=== PATIENT | female | born 1960 | race African-American/Black ===

== ENCOUNTER 2019-04-07 08:36 | Emergency (ER) | payer MEDICAID ==
[~2019-04-07] VITALS: Ht 162.6 cm; Wt 78.0 kg
[2019-04-07 08:56] VITALS: BP 118/75
--- NOTE | 2019-04-07 09:12 | Emergency Room Report ---
History of Present Illness General Chief Complaint: Eye Problems Present Illness HPI 58-year-old female complaining of frontal and superior headache which started 2 to 3 days ago. She reports also feeling bilateral eye pain and pressure. She denies any vision changes, eye discharge, eye redness, trauma, injuries, falls, syncope. She does note associated lightheaded dizziness and generalized body aches and chills. She has not gotten the influenza vaccination this year. She suffers from chronic migraines which she is taking medications on for over the years but has not taken anything for this episode. Allergies: Coded Allergies: No Known Allergies (Unverified , 04/07/19) Patient History Last Menstrual Period: 2012 Nursing Documentation-PMH Hx Neurological Problems: Yes - CHRONIC MIGRAINE Review of Systems Constitutional: Reports: chills, fever, weakness Respiratory: Denies: cough, shortness of breath Cardiovascular: Denies: chest pain, palpitations Gastrointestinal: Denies: diarrhea, vomiting Genitourinary: Denies: hematuria, pain Musculoskeletal: Denies: joint swelling Skin: Denies: rash, lesions Neurological: Reports: headache; Denies: dizziness Physical Exam Vital Signs Date Time Temp Pulse Resp B/P (MAP) Pulse Ox O2 Delivery O2 Flow Rate FiO2 04/07/19 08:39 101.1 100 19 127/75 (92) 97 Room Air Sp02 EP Interpretation: reviewed General Appearance: well appearing, no apparent distress, alert, non-toxic Head: normocephalic, atraumatic Eyes: bilateral eye normal inspection, bilateral eye PERRL, bilateral eye EOMI ENT: hearing grossly normal, EOM grossly intact, moist mucus membranes Neck: normal inspection, full range of motion, supple, thyroid normal, no meningismus, no bony tend, no carotid bruits Respiratory: lungs clear, normal breath sounds, no rhonchi, no respiratory distress, no retraction, no accessory muscle use, no wheezing, speaking full sentences Cardiovascular #1: regular rate, rhythm, normal capillary refill Cardiovascular #2: 2+ radial (R), 2+ radial (L) Gastrointestinal: soft, non-distended Rectal: deferred Musculoskeletal: moves extm spontaneously, no lower extremity edema Neurologic: alert, motor strength/tone normal, oracle database architect III-XII nml as tested, oriented, oriented x3, sensory intact, normal gait Psychiatric: mood/affect normal Skin: warm/dry, normal turgor Lymphatic: no adenopathy Medical Decision Making Diagnostic Impression: Primary Impression: Headache Additional Impression: Eye pain ER Course Differential includes Doubt meningitis as patient has full range of motion of neck and no pain. Doubt intracranial hemorrhage or mass given no neurological deficits. Likely migraine headache given history of similar. Will give medications and reevaluate Laboratory Tests Test 04/07/19 09:14 White Blood Count 10.4 K/UL (4.8-10.8) Red Blood Count 5.09 M/UL (4.20-5.40) Hemoglobin 13.5 G/DL (12.0-16.0) Hematocrit 41.7 % (37.0-47.0) Mean Corpuscular Volume 82 FL (80-99) Mean Corpuscular Hemoglobin 26.5 PG (27.0-31.0) L Mean Corpuscular Hemoglobin Concent 32.4 G/DL (32.0-36.0) Red Cell Distribution Width 13.1 % (11.6-14.8) Platelet Count 223 K/UL (150-450) Mean Platelet Volume 7.1 FL (6.5-10.1) Neutrophils (%) (Auto) 80.3 % (45.0-75.0) H Lymphocytes (%) (Auto) 8.1 % (20.0-45.0) L Monocytes (%) (Auto) 11.1 % (1.0-10.0) H Eosinophils (%) (Auto) 0.1 % (0.0-3.0) Basophils (%) (Auto) 0.5 % (0.0-2.0) Urine Color Pale yellow Urine Appearance Clear Urine pH 8 (4.5-8.0) Urine Specific [place] 1.015 (1.005-1.035) Urine Protein Negative (NEGATIVE) Urine Glucose (UA) Negative (NEGATIVE) Urine Ketones Negative (NEGATIVE) Urine Blood 2+ (NEGATIVE) H Urine Nitrite Negative (NEGATIVE) Urine Bilirubin Negative (NEGATIVE) Urine Urobilinogen Normal MG/DL (0.0-1.0) Urine Leukocyte Esterase 1+ (NEGATIVE) H Urine RBC 2-4 /HPF (0 - 2) H Urine WBC 2-4 /HPF (0 - 2) Urine Squamous Epithelial Cells Moderate /LPF (NONE/OCC) H Urine Bacteria Occasional /HPF (NONE) Sodium Level 135 MMOL/L (136-145) L Potassium Level 4.5 MMOL/L (3.5-5.1) Chloride Level 98 MMOL/L (98-107) Carbon Dioxide Level 31 MMOL/L (21-32) Anion Gap 6 mmol/L (5-15) Blood Urea Nitrogen 10 mg/dL (7-18) Creatinine 0.8 MG/DL (0.55-1.30) Estimate Glomerular Filtration Rate > 60 mL/min (>60) Glucose Level 122 MG/DL (74-106) H Calcium Level 9.1 MG/DL (8.5-10.1) Lab Results Impression Labs reviewed. Noted to have normal CBC, CMP, mild leukocyte esterase and blood in urine Reevaluation Time: 11:00 Last Vital Signs Date Time Temp Pulse Resp B/P (MAP) Pulse Ox O2 Delivery O2 Flow Rate FiO2 04/07/19 11:41 98.0 73 20 118/75 99 Room Air Reevaluation Impression Patient's testing reviewed noted to be within normal limits. Patient has no meningeal signs, no signs of sepsis or septic shock at this time. Patient symptoms likely secondary to migraine headache versus viral illness. Recommended taking her migraine medications. Given 3 days of her Zomig as she requested until she can follow-up with her primary care doctor. Recommended reevaluation in 2 to 3 days. Patient understands all instructions. Disposition: HOME, SELF-CARE Condition: Stable Scripts Zolmitriptan (Zomig) 5 Mg Tablet 5 MG ORAL PRN for 3 Days, #3 TAB Prov: David Campo M.D. 04/07/19 Referrals: NON PHYSICIAN (PCP) Patient Instructions: General Headache Without Cause Additional Instructions: Please follow-up with your primary care doctor in 2 to 3 days for reevaluation. Return to emergency room with any new or worsening symptoms. David Campo M.D. Apr 07, 2019 09:12
[2019-04-07] MEDS ORDERED: Ketorolac 30mg Inj IV ONE (09:15)
[2019-04-07] MEDS ORDERED: RESTORIL30 MG ORAL (09:49)
[2019-04-07] MEDS ORDERED: ZOMIG ZMT5 MG ORAL (09:50)
[2019-04-07 10:08] LABS: APPEARANCE,URINE CLEAR; BASOPHILS % (AUTO) 0.5 % (0.0-2.0); BILIRUBIN, URINE NEGATIVE (NEGATIVE); COLOR,URINE PALE YELLOW; EOSINOPHILS % (AUTO) 0.1 % (0.0-3.0); GLUCOSE, URINE (UA) NEGATIVE (NEGATIVE); HEMATOCRIT 41.7 % (37.0-47.0); HEMOGLOBIN 13.5 G/DL (12.0-16.0); KETONES,URINE NEGATIVE (NEGATIVE); LEUKOCYTE ESTERASE ,URINE 1+ (NEGATIVE); LYMPHOCYTES % (AUTO) 8.1 % (20.0-45.0); MEAN CORPUSCULAR VOLUME 82 FL (80-99); MONOCYTES % (AUTO) 11.1 % (1.0-10.0); NEUTROPHILS % (AUTO) 80.3 % (45.0-75.0); NITRITE,URINE NEGATIVE (NEGATIVE); PH,URINE 8 (4.5-8.0); PLATELET COUNT 223 K/UL (150-450); PROTEIN,URINE NEGATIVE (NEGATIVE); RED BLOOD COUNT 5.09 M/UL (4.20-5.40); RED CELL DISTRIBUTION WIDTH 13.1 % (11.6-14.8); UROBILINOGEN,URINE NORMAL MG/DL (0.0-1.0); WHITE BLOOD COUNT 10.4 K/UL (4.8-10.8)
[2019-04-07 10:20] LABS: ANION GAP 6 mmol/L (5-15); BLOOD UREA NITROGEN 10 mg/dL (7-18); CALCIUM 9.1 MG/DL (8.5-10.1); CARBON DIOXIDE 31 MMOL/L (21-32); CHLORIDE 98 MMOL/L (98-107); CREATININE 0.8 MG/DL (0.55-1.30); POTASSIUM 4.5 MMOL/L (3.5-5.1); SODIUM 135 MMOL/L (136-145)
[2019-04-07] MEDS ORDERED: ZOMIG5 MG ORAL (11:38)
[2019-04-07 11:41] VITALS: BP 118/75
== END 2019-04-07 11:42 | disposition home or self-care (01) ==
LOC: EMR 08:58
DX: R51 Headache (principal); H57.10 Ocular pain, unspecified eye
CPT/HCPCS: 36415; 80048; 81003; 85025; 96361; 96374; 96375; J1885; J2405; J7030; Z7502; 99284